=== PATIENT | male | born 1950 | race Caucasian/White ===

== ENCOUNTER 2017-11-03 14:23 | Emergency (ER) | payer OTHER ==
[2017-11-03 14:51] VITALS: TEMP 98.3
[2017-11-03] MEDS ORDERED: Aspirin 325 mg EC Tablets PO STA (15:24)
[2017-11-03 15:34] LABS: BASO % 1.3 % (0.0-2.0); EOS % 0.6 % (0.0-4.0); HEMOGLOBIN 14.2 g/dL (12.0-18.0); LYMPH # 0.7 K/uL (1.0-4.3); LYMPH % 21.7 % (20.0-40.0); MEAN CELL VOLUME 85.4 fL (80.0-94.0); MEAN CORPUSCULAR HEMOGLOBIN 29.3 pg (27.0-31.0); MEAN CORPUSCULAR HGB CONC 34.4 g/dL (33.0-37.0); MEAN PLATELET VOLUME 7.6 fL (7.2-11.7); MONO # 0.3 K/uL (0.0-0.8); MONO % 9.4 % (0.0-10.0); NEUT # 2.3 K/uL (1.8-7.0); RBC 4.83 Mil/uL (4.40-5.90); RED CELL DISTRIBUTION WIDTH 13.1 % (11.5-14.5); WHITE BLOOD COUNT 3.4 K/uL (4.8-10.8)
[2017-11-03] MEDS ORDERED: Aspirin 325 mg EC Tablets PO ONE (15:35)
[2017-11-03 15:41] LABS: INR 1.1
[2017-11-03 16:01] LABS: ALB/GLOB RATIO 1.3 (1.0-2.1); ALBUMIN 4.3 g/dL (3.5-5.0); ALT/SGPT 27 U/L (21-72); AST/SGOT 31 U/L (17-59); BLOOD UREA NITROGEN 17 mg/dL (9-20); CALCIUM 9.1 mg/dl (8.6-10.4); GFR AFRICAN-AMERICAN > 60; GFR NON-AFRICAN AMERICAN > 60
[2017-11-03 16:12] LABS: B-TYPE NATRIURETIC PEPTIDE 121 pg/mL (0-900)
--- NOTE | 2017-11-03 16:16 | RAD ---
PROCEDURE: CHEST RADIOGRAPH, 1 VIEW HISTORY: SOB COMPARISON: None available. FINDINGS: LUNGS: Clear. PLEURA: No pneumothorax or pleural fluid seen. CARDIOVASCULAR: Normal. OSSEOUS STRUCTURES: No significant abnormalities. VISUALIZED UPPER ABDOMEN: Normal. OTHER FINDINGS: None. IMPRESSION: No active disease.
--- NOTE | 2017-11-03 16:26 | C.PDOC ---
History Of Present Illness 67 year old male presents to the ER with a complaint of bilateral parasternal digitally reproducible pain. Patient is on nitrate for blood pressure control, he was seen and evaluated in the the [place] and gets his medications from there. Denies substernal pressure/pain, SOB, nausea, or vomiting. Time Seen by Provider: 11/03/17 15:23 Chief Complaint (Nursing): Chest Pain History Per: Patient History/Exam Limitations: no limitations Current Symptoms Are (Timing): Still Present Associated Symptoms: denies: Nausea, Dyspnea, Diaphoresis, Syncope Modifying Factors: None Exacerbating Factors: None Alleviating Factors: None Recent travel outside of the [place]: No Past Medical History Reviewed: Historical Data, Nursing Documentation, Vital Signs Vital Signs: Last Vital Signs Temp 98.3 F 11/03/17 14:49 Pulse 79 11/03/17 16:36 Resp 19 11/03/17 16:36 BP 129/69 11/03/17 16:36 Pulse Ox 98 11/03/17 23:31 - Medical History PMH: HTN, Hyperlipidemia Family History: States: Unknown Family Hx - Social History Hx Alcohol Use: Yes Hx Substance Use: No - Immunization History Hx Tetanus Toxoid Vaccination: No Hx Influenza Vaccination: No Hx Pneumococcal Vaccination: No Review Of Systems Constitutional: Negative for: Fever, Chills Cardiovascular: Negative for: Chest Pain, Palpitations Respiratory: Negative for: Shortness of Breath Gastrointestinal: Negative for: Nausea, Vomiting, Abdominal Pain Musculoskeletal: Positive for: Other (Chest wall pain) Physical Exam - Physical Exam Appears: Non-toxic, No Acute Distress Skin: Normal Color, Warm, Dry Head: Atraumatic, Normacephalic Eye(s): bilateral: Normal Inspection Oral Mucosa: Moist Neck: Normal, Supple Chest: Symmetrical, Tenderness (Minor bilateral parasternal discomfort) Cardiovascular: Rhythm Regular Respiratory: Normal Breath Sounds, No Rales, No Rhonchi, No Wheezing Gastrointestinal/Abdominal: Soft, No Tenderness Neurological/Psych: Oriented x3, Normal Speech ED Course And Treatment - Laboratory Results Result Diagrams: 11/03/17 15:28 11/03/17 15:28 Lab Interpretation: Normal (trop neg, glu slightly elev) ECG: Interpreted By Me ECG Rhythm: Sinus Rhythm ECG Interpretation: Normal Rate From EC O2 Sat by Pulse Oximetry: 98 Pulse Ox Interpretation: Normal - Radiology CXR: Interpreted by Me CXR Interpretation: Yes: No Acute Disease Progress Note: labetolol 200 mg PO, toradol 30 mg IV given with excellent effect Reevaluation Time: 16:28 Reassessment Condition: Improved (digitally reproducable parasternal discomfort relieved with tx.) Medical Decision Making Medical Decision Making: pt with ? angina regimen of isorbid, valsartan and ASA, but no h/o stents and poorly controlled HTN More likely angina due to elevated BP. poor outpatient regimen does not include BB nor statin. Will Add BB and increase ARB as he responded very well to Labetolol. discussed with family with exceellent insight. adjusted increased metformin from 875 BID to 1000 mg BID for better DM control. Disposition Doctor Will See Patient In The: Office Counseled Patient/Family Regarding: Studies Performed, Diagnosis - Disposition Referrals: [facility] [Outside] Disposition: HOME/ ROUTINE Disposition Time: 16:30 Condition: GOOD Additional Instructions: Diario liam: Valsartan 320 mg 8AM Atenolol 50 mg 8AM Aspirina 81 mg 8AM Metformin 1000 mg 8AM y 6PM (siempre con comida) Tableta de Cholesterol diario (la hora depende en el medicamento; brandi o' noche) Isocard 1/2 tableta 1-2 veces al brandi jacqueline necessario para pression del pecho (si la pression esta christopher) Sigue en [facility] para hacer colleen. Prescriptions: Atenolol [Tenormin] 50 mg PO DAILY #30 tab MetFORMIN [glucoPHAGE] 1,000 mg PO BID #60 tab Valsartan [Diovan] 320 mg PO DAILY #30 tab Instructions: Hypertension (ED) Forms: [employer] (Beninese) Print Language: URDU - Clinical Impression Clinical Impression: Chest discomfort, Uncontrolled hypertension - Scribe Statement The provider has reviewed the documentation as recorded by the Scribcodi Suggs All medical record entries made by the Scribe were at my direction and personally dictated by me. I have reviewed the chart and agree that the record accurately reflects my personal performance of the history, physical exam, medical decision making, and the department course for this patient. I have also personally directed, reviewed, and agree with the discharge instructions and disposition.
[2017-11-03 16:37] VITALS: BP 129/69; PULSE 79; RESP 19
[2017-11-03 16:46] VITALS: O2SAT 98
--- NOTE | 2017-11-04 16:04 | CARD ---
APPROVED REPORT EKG Measurement Heart [id number] <Conclusion> Sinus tachycardia Otherwise normal ECG
== END 2017-11-03 17:10 | disposition home or self-care (01) ==
LOC: C.ER 14:23
DX: R07.9 Chest pain, unspecified (principal); I10 Essential (primary) hypertension; E78.5 Hyperlipidemia, unspecified
CPT/HCPCS: 71045; 80053; 83880; 84484; 85025; 85610; 85730; 93005; 96374; 99284; J1885